=== PATIENT | female | born 1935 | race Caucasian/White ===

== ENCOUNTER 2018-10-23 21:42 | Observation (INO) ==
--- NOTE | 2018-10-23 22:10 | Emergency Department Note ---
Disposition Clinical Impression: Lightheadedness, Multiple falls Disposition: Admitted As Inpatient Condition: Good Referrals: Pamela Rutherford MD [Primary Care Provider] - Time of Disposition: 00:18 General Adult HPI - General Stated complaint: falling slurred speech Time Seen by Provider: 10/23/18 22:08 Source: patient, family Mode of arrival: private vehicle Limitations: no limitations Nursing Notes Reviewed: Yes Vital Signs Reviewed: Yes - History of Present Illness HPI Narrative: Patient is brought to the ED by family with concerns for multiple falls today and slurred speech. Family is concerned that she has had a stroke. Patient tells me she has fallen a total of 3 times today with first fall around 11:30 this morning. She states each time she fell she was lightheaded first. At one point she was bending over to put on her shoes and at another occasion she was bending over to brush her dog when she became lightheaded and fell. She denies striking her head or losing consciousness. She denies any injuries from the fall. She denies any pain anywhere. She is not currently lightheaded now. She denies any numbness, tingling or weakness in her arms or her legs. Family reports that her speech was more slurred earlier in the day than it is currently and after the first fall what she was saying did not make sense. Patient's only medical issues are high blood pressure and anxiety. She is on triamterene and hydrochlorothiazide and was recently changed from Ativan to Xanax. Daughter states there is only one Xanax tablet out of the bottle that was prescribed on the . She is not a diabetic. She has never had a stroke. She denies any cardiac or respiratory problems. Daughter states patient does have some short- term memory problems. Patient is having difficulty telling me what she ate today but does not think that she ate much. However she is A and O 4 and answers all questions appropriately. Patient cannot recall the last time she fell before today. - Related Data Home Medications Medication Instructions Recorded Confirmed ALPRAZolam [Xanax 1 MG Tablet] 1 mg PO BID 10/23/18 10/23/18 Triamterene/HCTZ 37.5/25mg 1 each PO DAILY 10/23/18 10/23/18 [Dyazide] Allergies Allergy/AdvReac Type Severity Reaction Status Date / Time No Known Allergies Allergy Verified 10/23/18 22:23 Constitutional: Denies: fever, chills, weakness, weight change Eyes: Denies: eye pain, eye discharge, vision change ENT ED: Denies: ear pain, throat pain, dental pain, hearing loss, epistaxis, congestion, dysphagia Cardiovascular: Denies: chest pain, palpitations, dyspnea on exertion, edema, syncope Respiratory: Denies: cough, dyspnea, wheezes, hemoptysis, stridor Gastrointestinal: Denies: abdominal pain, nausea, vomiting, diarrhea, constipation, hematemesis, melena, hematochezia Genitourinary: Denies: dysuria, frequency, hematuria, discharge Musculoskeletal: Denies: back pain, neck pain, arthralgia, myalgia Integumentary: Denies: rash, abrasion, lesions Neurological: Reports: as per HPI, other (lightheadedness). Denies: headache, weakness, numbness, paresthesias, confusion, abnormal gait, vertigo Psychiatric: Denies: anxiety, depression, suicidal thoughts, homicidal thoughts, auditory hallucinations, visual hallucinations Endocrine: Denies: fatigue Hematological/Lymphatic: Denies: easy bleeding, easy bruising Allergic/Immunologic: Denies: facial swelling, urticaria Past Medical History - Past Medical History Medical history: Reports: dementia, hypertension Psychiatric history: Reports: other [employer] history: Reports: no [employer] history - Social History Smoking Status: Never smoker Smokeless Tobacco Status: No Alcohol use: Reports: none Drug use: Reports: none Physical Exam - General Limitations: no limitations General appearance: alert, in no apparent distress - Head Head exam: atraumatic, normocephalic, normal inspection - Eye Eye exam: Present: normal appearance, PERRL, EOMI - ENT ENT exam: normal exam, normal oropharynx, mucous membranes moist - Neck Neck exam: Present: normal inspection, full ROM, trachea midline - Chest Chest inspection: Present: normal inspection, symmetric chest wall rise - Respiratory Respiratory exam: Present: normal lung sounds bilaterally - Cardiovascular Cardiovascular exam: Present: regular rate, normal rhythm, normal heart sounds - Abdominal Exam Abdominal exam: Present: soft, Non-Tender. Absent: tenderness, distention, guarding, rebound, rigidity - Extremities Exam Extremities exam: Present: normal inspection, full ROM. Absent: tenderness, pedal edema - Back Exam Back exam: Present: normal inspection, full ROM. Absent: tenderness - Neurological Exam Neurological exam: Present: alert, oriented X3, CN II-XII intact, reflexes normal. Absent: motor sensory deficit - Expanded Neurological Exam Patient oriented to: Present: person, place, time Speech: Present: fluid speech (with occasional slight dysarthria) Cranial nerves: EOM function (II, III, IV, ): Normal, facial sensation (V): Normal, facial palsy (VII): Normal, gag reflex (IX): Normal, spinal accessory function (XI): Normal, tongue deviation (XII): Normal Cerebellar function: finger to nose: Normal Motor strength - LUE: 5/5 Motor strength - RUE: 5/5 Motor strength - LLE: 5/5 Motor strength - RLE: 5/5 Upper motor neuron exam: domingo neglect: Absent bilaterally, pronator drift: Absent bilaterally, sensory extinction: Absent bilaterally Sensory exam upper extremity: light touch: Normal Sensory exam lower extremity: light touch: Normal Coma Scale Eye Opening: Spontaneous Coma Scale Motor Response: Obeys Commands Coma Scale Verbal Response: Oriented Coma Scale Total: 15 Course Course Narrative: Agent presents to the ED after 3 falls today that were preceded by lightheadedness while bending over. Family reports that she had very slurred speech and was not making sense when she was talking earlier today after the first fall. On arrival to the ED NIH stroke scale was performed with a resulting score of 1 for some intermittent dysarthria. Patient is a and O 4, follows all commands and has no other neurologic deficits. Given age and symptoms will obtain head CT, chest x-ray, EKG and lab work for further evaluation. While she may have experienced a TIA she may have also simply experienced orthostatic hypotension. - Reevaluation(s) Reevaluation #1: With the static vital signs showed a drop in blood pressure of 17 point. There is no reflux tachycardia. EKG does not show any acute abnormalities. Chest x- ray is normal. Head CT did not show any hemorrhage but there is a density that is likely artifact versus recent ischemia. Lab work is notable only for a low potassium at 2.9. Will replete potassium. Family expressed concern about patient returning home this evening with the 3 falls today as there are steps in the home and she tends to roam at night due to her dementia. Given that she needs IV fluids and potassium repletion should benefit from overnight observation. Patient family are agreeable to this. I spoken to the hospitalist on-call, Dr. Nettles who has agreed to admit the patient Time: 00:14 Vital Signs Temperature 98 F 10/23/18 22:10 Pulse Rate 76 10/23/18 22:10 Respiratory Rate 18 10/23/18 22:10 Blood Pressure 139/61 10/23/18 22:10 O2 Sat by Pulse Oximetry 96 10/23/18 22:10 Temperature 98 F 10/23/18 22:10 Pulse Rate 67 10/23/18 23:11 Respiratory Rate 18 10/23/18 22:10 Blood Pressure 120/50 10/23/18 23:11 O2 Sat by Pulse Oximetry 96 10/23/18 22:10 Oxygen Delivery Oxygen Delivery Room Air Medical Decision Making - Medical Records Medical records reviewed: Yes I reviewed the patient's medical records. - Lab Data Lab results reviewed: Yes I reviewed the patient's lab results. Result diagrams: 10/23/18 23:00 10/23/18 23:00 Lab Results 10/23/18 10/23/18 10/23/18 Range/Units 21:49 23:00 23:00 WBC 6.6 (4.3-11.1) K/mcL RBC 4.26 (3.82-4.97) M/mcL Hgb 12.8 (11.5-15.4) g/dL Hct 38.5 (35.3-44.9) % MCV 90.4 (83.0-100.0) fL MCH 30.0 (28.0-33.3) pg MCHC 33.2 (31.6-35.5) g/dL RDW 13.2 (11.5-14.5) % Plt Count 210 (140-400) K/mcL MPV 8.9 L (9.4-12.4) fL Immature Gran % 0.6 (0-4) % Seg Neutrophils % 73.3 % Lymphocytes % 15.6 % Monocytes % 8.5 % Eosinophils % 1.7 % Basophils % 0.3 % Neutrophils # 4.8 (1.6-8.9) K/mcL Lymphocytes # 1.0 (0.6-4.6) K/mcL Monocytes # 0.6 (0.0-1.3) K/mcL Eosinophils # 0.1 (0.0-0.6) K/mcL Basophils # 0.0 (0.0-0.2) K/mcL PT 10.8 (9.4-12.1) Seconds INR 1.0 Sodium (136-145) mEq/L Potassium (3.5-5.1) mEq/L Chloride (98-107) mEq/L Carbon Dioxide (23-29) mEq/L BUN (8-23) mg/dL Creatinine (0.60-1.20) mg/dL Est GFR ( Amer) (> 60) Est GFR (Non-Af Amer) (> 60) BUN/Creatinine Ratio (6-26) Glucose (70-105) mg/dL POC Glucose 159 H (70-99) mg/dL Calculated Osmolality (280-300) Calcium (8.6-10.3) mg/dL Troponin I (< 0.04) ng/mL 10/23/18 Range/Units 23:00 WBC (4.3-11.1) K/mcL RBC (3.82-4.97) M/mcL Hgb (11.5-15.4) g/dL Hct (35.3-44.9) % MCV (83.0-100.0) fL MCH (28.0-33.3) pg MCHC (31.6-35.5) g/dL RDW (11.5-14.5) % Plt Count (140-400) K/mcL MPV (9.4-12.4) fL Immature Gran % (0-4) % Seg Neutrophils % % Lymphocytes % % Monocytes % % Eosinophils % % Basophils % % Neutrophils # (1.6-8.9) K/mcL Lymphocytes # (0.6-4.6) K/mcL Monocytes # (0.0-1.3) K/mcL Eosinophils # (0.0-0.6) K/mcL Basophils # (0.0-0.2) K/mcL PT (9.4-12.1) Seconds INR Sodium 135 L (136-145) mEq/L Potassium 2.9 L (3.5-5.1) mEq/L Chloride 102 (98-107) mEq/L Carbon Dioxide 27 (23-29) mEq/L BUN 38 H (8-23) mg/dL Creatinine 0.83 (0.60-1.20) mg/dL Est GFR ( Amer) > 60 (> 60) Est GFR (Non-Af Amer) > 60 (> 60) BUN/Creatinine Ratio 46 H (6-26) Glucose 112 H (70-105) mg/dL POC Glucose (70-99) mg/dL Calculated Osmolality 290 (280-300) Calcium 9.4 (8.6-10.3) mg/dL Troponin I < 0.03 (< 0.04) ng/mL - Radiology Data Radiology results reviewed: Yes I reviewed the patient's radiology results. ITS Impressions Chest X-Ray 10/23/18 22:10 IMPRESSION: Stable portable study. D/ / Bettina Corbett Cha, MD / Bettina Corbett Cha, MD Interpreting Provider: Bettina Corbett Cha, MD Head CT 10/23/18 22:10 IMPRESSION: Multifocal small-vessel ischemic change bilaterally with scattered small prior lacunar infarcts Faint low-density in the left occipital pole seen best on image 34. Artifact is favored however recent ischemia would be difficult to exclude. If the patient has persistent overriding symptoms, consider MRI. No hemorrhage D/ / Jim Brand / Jim Brand Interpreting Provider: Jim Brand - EKG Data EKG #1 EKG attestation: Yes I reviewed and interpreted this EKG. EKG shows normal: sinus rhythm Rate: normal Rhythm: NSR Hasty/QRS: normal Voltage: c/w LVH, c/w atrial hypertrophy Heart block present: 1st Degree (borderline) When compared to previous EKG there are: previous EKG unavailable Interpretation: no acute changes
[2018-10-23 23:09] LABS: Basophils % 0.3 %; Eosinophils # 0.1 K/mcL (0.0-0.6); Eosinophils % 1.7 %; Hematocrit 38.5 % (35.3-44.9); Hemoglobin 12.8 g/dL (11.5-15.4); Immature Granulocytes % 0.6 % (0-4); Lymphocytes % 15.6 %; Mean Corpuscular HGB Conc 33.2 g/dL (31.6-35.5); Mean Corpuscular Volume 90.4 fL (83.0-100.0); Mean Platelet Volume 8.9 fL (9.4-12.4); Monocytes # 0.6 K/mcL (0.0-1.3); Monocytes % 8.5 %; Neutrophils # 4.8 K/mcL (1.6-8.9); Platelet Count 210 K/mcL (140-400); Red Blood Count 4.26 M/mcL (3.82-4.97); Red Cell Distribution Width 13.2 % (11.5-14.5); Segmented Neutrophils % 73.3 %; White Blood Count 6.6 K/mcL (4.3-11.1)
[2018-10-23 23:13] LABS: Prothrombin Time 10.8 Seconds (9.4-12.1)
[2018-10-23] MEDS ORDERED: 0.9 % Sodium Chloride 1,000 ML IVC ONE (23:13)
[2018-10-23 23:20] LABS: BUN/Creatinine Ratio 46 (6-26); Blood Urea Nitrogen 38 mg/dL (8-23); Calcium 9.4 mg/dL (8.6-10.3); Carbon Dioxide 27 mEq/L (23-29); Chloride 102 mEq/L (98-107); Glucose 112 mg/dL (70-105); Osmolality,Calculated 290 (280-300); Potassium 2.9 mEq/L (3.5-5.1); Sodium 135 mEq/L (136-145); eGFR For African Americans > 60 (> 60); eGFR For Non-African Americans > 60 (> 60)
[2018-10-23 23:23] LABS: Troponin I < 0.03 ng/mL (< 0.04)
[2018-10-23] MEDS ORDERED: [UNRECOGNIZED DRUG - OTHER] IVC ONE (23:45)
[2018-10-23] MEDS ORDERED: 0.9 % Sodium Chloride 500 ML IVC ONE (23:45)
[2018-10-23] MEDS ORDERED: POTASSIUM CHLORIDE IVC ONE (23:45)
[2018-10-24] MEDS ORDERED: Naloxone 0.4 MG/ML INJ IVP PRN ×2 (00:15→01:33)
[2018-10-24 00:17] LABS: Bilirubin,Urine Negative (Negative); Blood,Urine Negative (Negative); Clarity,Urine Slightly Cloudy (Clear); Glucose,Urine (UA) Normal (Normal); Ketones,Urine Negative (Negative); Leukocyte Esterase,Urine Small (Negative); Nitrite,Urine Negative (Negative); PH,Urine 5.5 pH Units (5.0-8.0); Protein,Urine Negative (Neg-Trace); Urobilinogen,Urine Normal (Normal)
[2018-10-24 00:22] LABS: Color,Urine Yellow (Yellow)
[2018-10-24 00:23] LABS: Bacteria,Urine Few per hpf (None-Few); Squamous Epithelial Cell,Urine Few per lpf (None-Few)
[2018-10-24 06:43] LABS: BUN/Creatinine Ratio 38 (6-26); Blood Urea Nitrogen 30 mg/dL (8-23); Carbon Dioxide 26 mEq/L (23-29); Chloride 105 mEq/L (98-107); Glucose 83 mg/dL (70-105); Osmolality,Calculated 291 (280-300); Potassium 3.5 mEq/L (3.5-5.1); Sodium 138 mEq/L (136-145); eGFR For African Americans > 60 (> 60); eGFR For Non-African Americans > 60 (> 60)
[2018-10-24] MEDS ORDERED: ALPRAZolam 1 MG TABLET PO SCH (09:00)
--- NOTE | 2018-10-24 09:40 | Internal Med History&Physical ---
Date of Encounter: 10/24/18 Time of Encounter: 09:33 Assessment and Plan (1) Multiple falls Current visit: Yes Status: Acute Patient was evaluated after experiencing multiple falls at home and presented with dysarthria. No other focal neurological deficits were noted and on today's exam patient's speech appears clear and appropriate. CT of the brain was obtained which showed no acute process. Vital signs currently are stable. Patient received fluid resuscitation overnight due to electrolyte imbalances and for possible orthostatic hypotension. Currently she denies any discomforts, dyspnea, palpitations or dizziness. We will continue with current plan of care. (2) Dysarthria Current visit: Yes Status: Acute Patient was evaluated overnight for possible CVA due to presenting with dysarthria. This morning patient's speech is clear and appropriate. Patient is able to answer complex questions appropriately. No focal neurological deficits were noted on exam. Vital signs are stable. CT on admission showed no acute process. Continue to monitor closely. (3) Hypokalemia Current visit: Yes Status: Acute Patient presented with labs showing a potassium 2.9. Patient received supplemental potassium and IV fluid resuscitation overnight. This morning's labs show potassium of 3.5. Internal Medicine - H&P: HPI Chief complaint: slurred speech Admitted From: Home Plans for Post Hospital Care: Home History of present illness: Ms. Gann is a 83 year old female, who presented to emergency department after experiencing several falls over the past few days at home. Patient was also no babs to have confusion and a slurred speech. Patient did not show any other focal neurological deficits per ER records. Patient had a CT of the brain that was performed which showed some acute issues. Patient also had a chest x-ray that was performed which showed no acute cardiac or infectious process. Patient had admission labs which showed, which did show a low potassium and sodium. Urinalysis was obtained which did not show positive. Patient was admitted for overnight evaluation for possible CVA/TIA and for fluid resuscitation for possible orthostatic hypotension that may have led to her falls. This morning patient appears alert and oriented 4 and states that she feels fine and feels that she could go home. Patient denies any dyspnea or discomforts. Denies any dizziness or palpitations. Patient does continue on Xanax that she has a history of anxiety. Past Med Surg Social Fam HX - Past Medical History Medical history: dementia, hypertension Additional medical history: Falls Psychiatric history: anxiety, depression - Past Surgical History Surgical History: hysterectomy, orthopedic, other, other Additional surgical history: L hip replacement, Cataract Surgery - Social History Smoking Status: Never smoker Smokeless Tobacco Status: No Alcohol use: none Drug use: none Internal Medicine - H&P: Meds ALPRAZolam [Xanax 1 MG Tablet] 1 mg PO BID 10/23/18 [History] Triamterene/HCTZ 37.5/25mg [Dyazide] 1 each PO DAILY 10/23/18 [History] Allergy/AdvReac Type Severity Reaction Status Date / Time No Known Allergies Allergy Verified 10/23/18 22:23 All Systems PM: A 10-system review of systems was performed and is negative for pertinent findings except as documented above in the HPI. - Constitutional Constitutional: as per HPI, no chills, no fever(s), no night sweats - EENT Eyes: as per HPI, no change in vision, no discharge, no pain, no photophobia Ears: as per HPI, no ear discharge, no ear pain, no tinnitus Nose, mouth and throat: as per HPI, no dysphagia, no nasal discharge, no neck pain, no sore throat - Breasts Breasts: as per HPI - Cardiovascular Cardiovascular ROS IM: as per HPI, no chest pain, no diaphoresis, no dyspnea, no lightheadedness, no palpitations, no syncope - Respiratory Respiratory: as per HPI, no cough, no dyspnea, no wheezing, no excessive phlegm production - Gastrointestinal Gastrointestinal: as per HPI, no abdominal pain, no diarrhea, no hematemesis, no hematochezia, no melena, no nausea, no vomiting - Genitourinary Genitourinary: as per HPI, no change in urinary stream, no dysuria, no flank pain, no hematuria - Musculoskeletal Musculoskeletal ROS IM: as per HPI, no numbness, no tingling - Integumentary Integumentary IM: as per HPI, no rash, no unusual bruising - Neurological Neurological ROS: as per HPI, no confusion, no convulsions, no focal weakness, no numbness, no tingling, no tremor(s) - Psychiatric Psychiatric: as per HPI - Hematologic/Lymphatic Hematologic/Lymphatic: no easy bruising - Constitutional Vitals: Temp Pulse Resp BP Pulse Ox 97.8 F 53 14 131/49 96 07/17/19 07:01 10/24/18 07:01 10/24/18 07:01 10/24/18 07:01 10/24/18 07:01 General appearance: Present: A&O X 3, pleasant Exam: Patient able to answer most complex questions appropriately. - Head Head exam: Present: atraumatic, normocephalic - Eye Eye exam: Present: PERRL, conjuntiva pink, sclera anicteric Pupils: Present: PERRL - Neck Neck exam general surgery: Present: supple, trachea midline. Absent: lymphadenopathy - Respiratory Respiratory exam: Present: decreased breath sounds, CTAB. Absent: accessory muscle use, rales, rhonchi, wheezes - Cardiovascular Cardiovascular exam: Present: RRR, +S1, +S2. Absent: diastolic murmur, gallop, rubs, systolic murmur - GI/Abdominal GI/Abdominal exam: Present: normal bowel sounds, soft, no peritoneal signs. Absent: distended, tenderness - Extremities Exam Extremities exam: Present: warm, radial pulses palpable and symmetrical. Absent: calf tenderness, cyanotic, pedal edema - Neurological Exam Neurological exam: Present: CN II-XII intact, oriented X3, no focal deficits. Absent: pronater drift, facial droop, speech deficit - Skin Skin exam: Present: dry, intact Internal Med - H&P Results - Labs CBC & Chem 7: 10/23/18 23:00 10/24/18 06:11 Labs: Short CBC 10/23/18 Range/Units 23:00 WBC 6.6 (4.3-11.1) K/mcL Hgb 12.8 (11.5-15.4) g/dL Hct 38.5 (35.3-44.9) % Plt Count 210 (140-400) K/mcL Neutrophils # 4.8 (1.6-8.9) K/mcL BMP 10/23/18 10/24/18 23:00 06:11 Sodium 135 L 138 Potassium 2.9 L 3.5 Chloride 102 105 Carbon Dioxide 27 26 BUN 38 H 30 H Creatinine 0.83 0.80 Glucose 112 H 83 Calcium 9.4 9.0 Cardiac Enzymes 10/23/18 Range/Units 23:00 Troponin I < 0.03 (< 0.04) ng/mL Urine 10/24/18 Range/Units 00:10 Urine Color Yellow (Yellow) Urine Clarity Slightly Cloudy A (Clear) Urine pH 5.5 (5.0-8.0) pH Units Ur Specific [place] 1.010 (1.010-1.025) Urine Protein Negative (Neg-Trace) mg/dL Urine Glucose (UA) Normal (Normal) mg/dL - Impressions ITS Impressions Chest X-Ray 10/23/18 22:10 IMPRESSION: Stable portable study. D/ / Bettina Corbett Cha, MD / Bettina Corbett Cha, MD Interpreting Provider: Bettina Corbett Cha, MD Head CT 10/23/18 22:10 IMPRESSION: Multifocal small-vessel ischemic change bilaterally with scattered small prior lacunar infarcts Faint low-density in the left occipital pole seen best on image 34. Artifact is favored however recent ischemia would be difficult to exclude. If the patient has persistent overriding symptoms, consider MRI. No hemorrhage D/ / Jim Brand / Jim Brand Interpreting Provider: Jim Brand - VTE Reasons for not Prescribing Prophylaxis: Treatment not Indicated - Low risk for VTE
--- NOTE | 2018-10-24 11:10 | Discharge Summary ---
Orders not resulted at time of discharge: Pending orders 10/23/18 22:11 ECG 12 lead ECG [ECG] Stat 10/24/18 00:10 Culture,Urine [RM] Stat Date of Encounter: 10/24/18 Time of Encounter: 11:07 - Discharge Diagnosis (1) Multiple falls Priority: Primary Status: Acute Comments: Patient was admitted after experiencing several falls at home. Patient was discovered to have started a Xanax prescription which likely influenced her gait and risk for fall. Patient was found to have some electrolyte imbalance on admission which was replaced along with fluid resuscitation overnight. No orthostatic positive vitals were recorded. Patient denies any dizziness, chest palpitations or symptoms of near-syncope. Patient will be discharged home with recommendations to follow-up with her PCP and to discontinue her Xanax. (2) Dysarthria Priority: Secondary Status: Acute Comments: Patient presented with slight dysarthria in the emergency department. Patient was admitted for overnight evaluation to evaluate for CVA. Patient's speech is clear and appropriate this morning. No focal neurological deficits were noted. CT of the brain showed no acute process. Patient will be discharged to home and is to follow-up with PCP (3) Hypokalemia Priority: Secondary Status: Acute Comments: Patient's potassium on admission was 2.9. Patient received supplement replacement and her most recent potassium currently is 3.5. Patient is continue her home medications and follow-up with PCP after discharge Hospital course: Ms. Gann is a 83 year old female , who was admitted to medical unit overnight for evaluation of possible CVA due to dysarthria on admission. Patient also has experienced multiple falls at home over the past few days, but was found to have started a new prescription for Xanax. Patient had several electrolyte pulses noted on admission labs which were corrected and she received gentle fluid resuscitation overnight. This morning's labs show corrective Patient's v ital signs have been stable during her stay. This morning patient has clear speech shows no focal neurological deficits. Patient had a CT scan of the brain which showed no acute process. Patient was given recommendations to discontinue her Xanax as this has created a fall risk for her. Patient was recommended to follow up with her PCP after discharge. Discharge discussed with: patient Time spent discussing smoking cessation with patient: 3 to 10 minutes - Time Spent with Patient Total time spent providing and/or coordinating discharge services: Time spent: Less than 30 minutes - Discharge Medications Prescriptions: No Action ALPRAZolam [Xanax 1 MG Tablet] 1 mg PO BID Triamterene/HCTZ 37.5/25mg [Dyazide] 1 each PO DAILY Home Medications: ALPRAZolam [Xanax 1 MG Tablet] 1 mg PO BID 10/23/18 [History] Triamterene/HCTZ 37.5/25mg [Dyazide] 1 each PO DAILY 10/23/18 [History] Allergies/Adverse Reactions: Allergy/AdvReac Type Severity Reaction Status Date / Time No Known Allergies Allergy Verified 10/23/18 22:23 Date of admission: 10/24/18 00:31 Primary care physician: Pamela Rutherford MD Discharging clinician: Valente Nettles - Constitutional Vitals: Temp Pulse Resp BP Pulse Ox 97.8 F 53 14 131/49 96 10/24/18 07:01 10/24/18 07:01 10/24/18 07:01 10/24/18 07:01 10/24/18 07:01 General appearance: Present: A&O X 3, pleasant - Head Head exam: Present: atraumatic, normocephalic - Eye Eye exam: Present: PERRL, conjuntiva pink, sclera anicteric Pupils: Present: PERRL - Neck Neck exam general surgery: Present: supple, trachea midline. Absent: lymphadenopathy - Respiratory Respiratory exam: Present: CTAB. Absent: accessory muscle use, rales, rhonchi, wheezes - Cardiovascular Cardiovascular exam: Present: RRR, +S1, +S2. Absent: diastolic murmur, gallop, rubs, systolic murmur - GI/Abdominal GI/Abdominal exam: Present: normal bowel sounds, soft, no peritoneal signs. Absent: distended, tenderness - Extremities Exam Extremities exam: Present: warm, radial pulses palpable and symmetrical. Absent: calf tenderness, cyanotic, pedal edema - Neurological Exam Neurological exam: Present: CN II-XII intact, oriented X3, no focal deficits. Absent: pronater drift, facial droop, speech deficit - Skin Skin exam: Present: dry, intact - Patient Status Disposition: Home, Self-Care Condition: Good Functional capacity at discharge: independent ambulation Overall status at discharge: patient is progressing back to baseline - Discharge Instructions Forms: ED Satisfaction Letter - Diet and Activity Activity: increase activity as tolerated Diet: advance to your usual diet, low fat, low cholesterol, low salt diet - VTE Reasons for not Prescribing Prophylaxis: Treatment not Indicated - Low risk for VTE
[2018-10-24 14:58] VITALS: BP 116/52
--- NOTE | 2018-10-24 20:19 | Electrocardiograph Report ---
[address] [place], [place] [address] Test Date: 2018-10-23 Pat Name: Soumya Gann Department: [facility] Room: 117 Gender: F Building Supervisor: : [id number] Requested By: Lula Green Order Number: [id number] Reading MD: Meera Laboy Measurements Intervals [place] Rate: 78 P: 48 SD: 184 QRS: -24 QRSD: 92 T: 64 QT: 397 QTc: 453 Interpretive Statements Sinus rhythm LVH on voltage Inferior infarct, old Possible anteroseptal infarct, old Electronically Signed On 10-24-2018 20:17:43 EDT by Meera Laboy
== END 2018-10-24 12:17 | disposition home or self-care (01) ==
LOC: INPGRE 21:42 → EMEROOGRE 21:42 → INPGRE 10-24 01:03

== ENCOUNTER 2019-02-13 12:50 | Observation (INO) ==
[2019-02-13 13:40] LABS: Basophils % 0.4 %; Eosinophils # 0.1 K/mcL (0.0-0.6); Eosinophils % 1.6 %; Hematocrit 40.2 % (35.3-44.9); Immature Granulocytes % 0.3 % (0-4); Lymphocytes # 1.2 K/mcL (0.6-4.6); Lymphocytes % 17.7 %; Mean Corpuscular HGB Conc 32.3 g/dL (31.6-35.5); Mean Corpuscular Hemoglobin 29.5 pg (28.0-33.3); Mean Corpuscular Volume 91.2 fL (83.0-100.0); Mean Platelet Volume 8.9 fL (9.4-12.4); Monocytes # 0.4 K/mcL (0.0-1.3); Monocytes % 6.4 %; Neutrophils # 4.9 K/mcL (1.6-8.9); Platelet Count 207 K/mcL (140-400); Red Blood Count 4.41 M/mcL (3.82-4.97); Red Cell Distribution Width 13.6 % (11.5-14.5); Segmented Neutrophils % 73.6 %; White Blood Count 6.7 K/mcL (4.3-11.1)
[2019-02-13 13:49] LABS: Prothrombin Time 10.8 Seconds (9.4-12.1)
[2019-02-13 13:52] LABS: Activated Partial Thrombo Time 28.8 Seconds (26.0-36.0)
[2019-02-13 13:59] LABS: Alanine Aminotransferase 13 Units/L (7-52); Albumin 4.1 g/dL (3.5-5.7); Albumin/Globulin Ratio 1.3 (1.1-2.2); Alkaline Phosphatase 43 Units/L (34-104); Aspartate Amino Transferase 15 Units/L (13-39); BUN/Creatinine Ratio 37 (6-26); Bilirubin,Total 0.3 mg/dL (0.3-1.0); Blood Urea Nitrogen 40 mg/dL (8-23); Calcium 9.7 mg/dL (8.6-10.3); Carbon Dioxide 28 mEq/L (23-29); Chloride 104 mEq/L (98-107); Creatine Kinase 61 Units/L (30-223); Globulin 3.2 g/dL (2.4-3.5); Glucose 90 mg/dL (70-105); Osmolality,Calculated 295 (280-300); Potassium 3.2 mEq/L (3.5-5.1); Sodium 138 mEq/L (136-145); Total Protein 7.3 g/dL (6.4-8.9); Troponin I < 0.03 ng/mL (< 0.04); eGFR For African Americans 59 (> 60); eGFR For Non-African Americans 49 (> 60)
[2019-02-13] MEDS ORDERED: 0.9 % Sodium Chloride 1,000 ML IVC SCH (14:15)
[2019-02-13] MEDS ORDERED: levoFLOXacin 500 MG/100 ML 500 MG/100 ML BAG IVPB ONE ×2 (14:15→14:25)
[2019-02-13] MEDS: 0.9 % Sodium Chloride 1,000 ML IVC SCH ×2 (14:30→23:12)
[2019-02-13] MEDS ORDERED: Naloxone 0.4 MG/ML INJ IVP PRN (15:11)
[2019-02-13] MEDS ORDERED: ALPRAZolam 1 MG TABLET PO PRN (19:31)
[2019-02-13] MEDS ORDERED: ALPRAZolam 1 MG TABLET PO SCH (21:00)
[2019-02-14 05:55] LABS: Basophils % 0.7 %; Eosinophils # 0.2 K/mcL (0.0-0.6); Eosinophils % 3.5 %; Hematocrit 38.9 % (35.3-44.9); Hemoglobin 12.3 g/dL (11.5-15.4); Immature Granulocytes % 0.5 % (0-4); Lymphocytes # 1.4 K/mcL (0.6-4.6); Lymphocytes % 23.4 %; Mean Corpuscular HGB Conc 31.6 g/dL (31.6-35.5); Mean Corpuscular Hemoglobin 29.1 pg (28.0-33.3); Mean Corpuscular Volume 92.2 fL (83.0-100.0); Mean Platelet Volume 8.6 fL (9.4-12.4); Monocytes # 0.6 K/mcL (0.0-1.3); Monocytes % 10.2 %; Neutrophils # 3.8 K/mcL (1.6-8.9); Platelet Count 208 K/mcL (140-400); Red Blood Count 4.22 M/mcL (3.82-4.97); Red Cell Distribution Width 13.7 % (11.5-14.5); Segmented Neutrophils % 61.7 %; White Blood Count 6.1 K/mcL (4.3-11.1)
[2019-02-14 06:14] LABS: BUN/Creatinine Ratio 33 (6-26); Blood Urea Nitrogen 28 mg/dL (8-23); Calcium 8.7 mg/dL (8.6-10.3); Carbon Dioxide 24 mEq/L (23-29); Chloride 110 mEq/L (98-107); Glucose 81 mg/dL (70-105); Osmolality,Calculated 289 (280-300); Potassium 3.8 mEq/L (3.5-5.1); Sodium 137 mEq/L (136-145); eGFR For African Americans > 60 (> 60); eGFR For Non-African Americans > 60 (> 60)
[2019-02-14] MEDS: 0.9 % Sodium Chloride 1,000 ML IVC SCH (07:45)
[2019-02-14 11:31] VITALS: BP 188/62
== END 2019-02-14 14:10 | disposition home or self-care (01) ==
LOC: INPGRE 12:50 → EMEROOGRE 12:50 → INPGRE 15:03